=== PATIENT | male | born 1955 | race Caucasian/White ===

== ENCOUNTER 2017-02-28 07:15 | Day surgery (SDC) | payer OTHER ==
[2017-02-28] MEDS ORDERED: FENTAnyl 50 MCG/ML VIAL (09:22)
[2017-02-28] MEDS ORDERED: MIDAZOLAM 1 MG/ML 2 ML INJ ×4 (09:22→09:24)
== END 2017-02-28 13:33 | disposition home or self-care (01) ==
LOC: GIL 07:15
DX: Z12.11 Encounter for screening for malignant neoplasm of colon (principal); K44.9 Diaphragmatic hernia without obstruction or gangrene; K21.9 Gastro-esophageal reflux disease without esophagitis; K29.70 Gastritis, unspecified, without bleeding; K64.8 Other hemorrhoids; I10 Essential (primary) hypertension
CPT/HCPCS: 43239; 87081